=== PATIENT | male | born 1950 | race Caucasian/White ===

== ENCOUNTER 2023-11-02 10:25 | Emergency (ER) | payer MEDICARE, OTHER ==
[2023-11-02 10:53] LABS: BASOPHILS ABSOLUTE AUTO 0.1 K/mm3 (0.0-0.2); BASOPHILS PERCENT AUTO 1.5 % (0.0-1.0); EOSINOPHILS ABSOLUTE AUTO 0.3 K/mm3 (0.0-0.4); EOSINOPHILS PERCENT AUTO 4.3 % (0.0-6.0); HEMATOCRIT 42.8 % (42.0-52.0); HEMOGLOBIN 14.8 gm/dl (14.0-18.0); IMMATURE GRAN ABSOLUTE AUTO 0.02 K/mm3 (0.00-0.05); IMMATURE GRAN PERCENT AUTO 0.3 % (0.0-0.4); LYMPHOCYTES ABSOLUTE AUTO 1.6 K/mm3 (1.0-4.8); MEAN CORPUSCULAR HGB CONC 34.6 g/dl (32.0-36.0); MEAN CORPUSCULAR VOLUME 89.5 fl (83.0-99.0); MEAN PLATELET VOLUME 10.9 fl (9.4-12.4); MONOCYTES ABSOLUTE AUTO 0.5 K/mm3 (0.0-0.8); NEUTROPHILS ABSOLUTE AUTO 4.7 K/mm3 (1.8-7.7); NEUTROPHILS PERCENT AUTO 64.9 % (41.0-71.0); PLATELET COUNT,PLT 266 K/mm3 (150-400); RED BLOOD CELL COUNT 4.78 M/mm3 (4.52-5.90); WHITE BLOOD CELL COUNT,WBC 7.28 K/mm3 (3.9-11.3)
[2023-11-02] MEDS: Aspirin 81 MG Tab.Chew PO ONE (10:55)
[2023-11-02] MEDS: Sodium Chloride 0.9% 10 ML Syringe FLUSH PRN (10:56)
[2023-11-02 11:15] LABS: A/G RATIO 1.3 (1-2); ANION GAP 14.2 (5-15); BILIRUBIN TOTAL 0.5 mg/dL (0.2-1.0); BUN/CREATININE RATIO 16.9 (14-18); CALCIUM 9.3 mg/dL (8.5-10.1); CREATININE 1.3 mg/dL (0.7-1.3); EST CRCL DRUG DOSING (CG) 46.35 mL/min; POTASSIUM,K 4.2 mEq/L (3.5-5.1); PROTEIN TOTAL,TP 7.2 g/dl (6.4-8.2)
== END 2023-11-02 12:15 | disposition home or self-care (01) ==
LOC: MERGE 10:25 → JD.ED 10:25
DX: R07.89 Other chest pain (principal); I10 Essential (primary) hypertension
CPT/HCPCS: 36415; 71045; 80053; 84484; 85025; 85379; 93005; 99285; A9270; J3490

== ENCOUNTER 2025-03-13 21:56 | Emergency (ER) | payer MEDICARE, OTHER ==
[2025-03-13] MEDS ORDERED: Naloxone 0.4 MG/ML SDV IVPUSH PRN (22:24)
[2025-03-13 22:27] LABS: APPEARANCE,URINE CLEAR (Clear); GLUCOSE,URINE NEGATIVE (Negative); OCCULT BLOOD,URINE NEGATIVE (Negative)
[2025-03-13 22:41] LABS: BASOPHILS ABSOLUTE AUTO 0.1 K/mm3 (0.0-0.2); BASOPHILS PERCENT AUTO 1.2 % (0.0-1.0); EOSINOPHILS ABSOLUTE AUTO 0.3 K/mm3 (0.0-0.4); EOSINOPHILS PERCENT AUTO 2.8 % (0.0-6.0); IMMATURE GRAN ABSOLUTE AUTO 0.03 K/mm3 (0.00-0.05); IMMATURE GRAN PERCENT AUTO 0.3 % (0.0-0.4); LYMPHOCYTES ABSOLUTE AUTO 2.4 K/mm3 (1.0-4.8); LYMPHOCYTES PERCENT AUTO 24.8 % (24.0-44.0); MEAN PLATELET VOLUME 11.0 fl (9.4-12.4); MONOCYTES ABSOLUTE AUTO 1.0 K/mm3 (0.0-0.8); MONOCYTES PERCENT AUTO 9.9 % (0.0-8.0); NEUTROPHILS ABSOLUTE AUTO 5.9 K/mm3 (1.8-7.7); NEUTROPHILS PERCENT AUTO 61.0 % (41.0-71.0); NRBC ABSOLUTE 0.00 (0.00-0.02); NRBC PERCENT 0.0 % (0.0-0.2); PLATELET COUNT,PLT 285 K/mm3 (150-400); RED BLOOD CELL COUNT 5.05 M/mm3 (4.52-5.90); WHITE BLOOD CELL COUNT,WBC 9.69 K/mm3 (3.9-11.3)
[2025-03-13 23:04] LABS: LACTIC ACID 1.0 mmol/L (0.4-2.0)
[2025-03-13 23:11] LABS: A/G RATIO 1.2 (1-2); ALANINE AMINOTRANSFERASE,ALT 31.0 U/L (16-63); ASPARTATE AMNIOTRANSFERASE,AST 25.0 U/L (15-37); BILIRUBIN TOTAL 0.5 mg/dL (0.2-1.0); BLOOD UREA NITROGEN,BUN 20.0 mg/dL (7-18); CARBON DIOXIDE,CO2 27.0 mEq/L (21-32); CHLORIDE,CL 106.0 mEq/L (98-107); CREATININE 1.4 mg/dL (0.7-1.3); EST CRCL DRUG DOSING (CG) 42.41 mL/min; ESTIMATED GFR 53.0 mL/min (>60); GLUCOSE RANDOM 103.0 mg/dL (70-99); POTASSIUM,K 3.9 mEq/L (3.5-5.1); PROTEIN TOTAL,TP 7.4 g/dl (6.4-8.2); SODIUM,NA 143.0 mEq/L (136-145)
[2025-03-13] MEDS ORDERED: Sodium Chloride 0.9% 10 ML Syringe FLUSH PRN (23:34)
[2025-03-13] MEDS: Sodium Chloride 0.9% 10 ML Syringe FLUSH PRN (23:50)
[2025-03-13] MEDS: Iopamidol 612 MG/ML 100 ML Bottle IVPUSH ONE (23:50)
[2025-03-14] MEDS: Ketorolac 30 MG/ML SDV IVPUSH ONE (01:35)
== END 2025-03-14 01:42 | disposition home or self-care (01) ==
LOC: JD.ED 21:56
DX: K80.70 Calculus of gallbladder and bile duct without cholecystitis without obstruction (principal); I10 Essential (primary) hypertension; Z79.899 Other long term (current) drug therapy
CPT/HCPCS: 36415; 74177; 76705; 80053; 81003; 83605; 85025; 96374; 96375; 99284; J2270; J7030; Q9967; J1885